=== PATIENT | female | born 1950 | race Caucasian/White ===

== ENCOUNTER 2017-01-01 18:19 | Inpatient (IN) | payer OTHER, MEDICAID, MEDICARE ==
[2017-01-01] MEDS ORDERED: Aspirin 81mg Chewable Tab PO STA (18:34)
[2017-01-01] MEDS ORDERED: NITROGLYCERIN OINT 2% 1 INCH PACKET TP STA (18:36)
--- NOTE | 2017-01-01 18:43 | ED Physician Chart ---
Chief Complaint/HPI - Patient Information Date Seen:: 01/01/17 Time Seen:: 18:00 Chief Complaint:: chest pain, SOB History of Present Illness:: Pt. has pacemaker and is S/P parmjit. She has had multiple episodes of chest pain and dyspnea. She c/o onset of dyspnea and chest pain sometime during the day today. Pt. has hx of "headache" associated with NTG. Allergies:: Allergies Allergy/AdvReac Type Severity Reaction Status Date / Time acetaminophen [From Vicodin] Allergy Verified 01/01/17 18:28 hydrocodone [From Vicodin] Allergy Verified 01/01/17 18:28 ibuprofen [From Motrin] Allergy Verified 01/01/17 18:28 nitroglycerin Allergy Verified 01/01/17 18:28 Vitals:: Vital Signs - 8 hr 01/01/17 18:30 Temp 97.7 F HR 60 RR 19 BP 137/88 O2 Sat % 95 Historian:: Patient Review of Systems - Review of Systems General/Constitutional: No fever Skin: No skin lesions Head: No headache ENT: No earache, No sore throat Neck: No neck pain, No swelling Cardio Vascular: Chest pain, No palpitations Pulmonary: SOB GI: No vomiting G/U: No dysuria Psychiatric: No prior psych history Past Medical History - Past Medical History Past Medical History: HTN, Dyslipidemia, Other (dysrrythmia, UTI's) Family History: Heart disease, Diabetes Melitus (sister had DM and unspecified CA) Social History: Non Smoker, No Alcohol Surgical History: Cholecystectomy, other (pacemaker) Psychiatricy History: None Medication Reviewed:: Ibuprofen, lisinopril, simvastatin, oxybutynin Physical Exam - Physical Examination General/Constitutional: Awake, Well-developed, well-nourished, Alert, No distress, GCS 15, Non-toxic appearing, Ambulatory Head: Atraumatic Eyes: Lids, conjuctiva normal, PERRL, EOMI Skin: Nl inspection ENMT: TM canals nl, Oropharynx nl Neck: Nontender, Full ROM w/o pain Respiratory: Nl effort/Exclusion, Clear to Auscultation Cardio Vascular: RRR, No murmur, gallop, rubs GI: No tenderness/rebounding/guarding : No CVA tenderness Extremities: No tenderness or effusion, normal strength in all extremities Neuro/Psych: Alert/oriented, Normal motor strength, Judgement/insight normal, No focal deficits Labs/Radiology/EKG Results - Lab Results Results: EKG: Atrial-paced rythm rate 75. CXR: No infiltrate. No free air or free fluid. Nl. heart size. CMP: gluc 124 CPK, trop wnl. CBC wnl PT 8.9 PTT 24.0 BNP 11.7 EKG: Atrial paced rythm 75. one PVC (vs. artifact). LVH. No acute ST change. ED Septic Shock - . Is Septic Shock (SBP<90, OR Lactate>4 mmol\\L) present?: No - <6hrs of presentation: Vital Signs: Vital Signs - 8 hr 01/01/17 18:30 Temp 97.7 F HR 60 RR 19 BP 137/88 O2 Sat % 95 Reassessment (Disposition) - Reassessment Reassessment Condition:: Improved - Patient Disposition Discharge/Transfer:: Acute Care w/in this hosp Accepting Physician:: Dr. Vance Time Called:: 1929 Time Responded:: 19:40 Discussion with Medical Provider:: Card. markers nl. Nitro topical and ASA given. Dr. Vance gave orders. Admitted to:: Telemetry Condition at Disposition:: Stable ED Discharge Plan - Patient Disposition Admit/Discharge/Transfer: Acute Care w/in this hosp Condition at Disposition: Guarded
[2017-01-01 18:45] LABS: % BASOPHILS 0.7 % (0.0-2.0); % EOSINOPHILS 3.5 % (0.0-5.0); % LYMPHOCYTES 34.2 % (20.0-50.0); % MONOCYTES 8.3 % (2.0-10.0); % NEUTROPHILS 53.3 % (40.0-80.0); HEMATOCRIT 41.7 % (35.0-45.0); HEMOGLOBIN 13.7 gm/dL (11.7-16.1); MEAN CORPUSCULAR HGB CONC 32.9 pg (28.0-36.0); MEAN PLATELET VOLUME 8.6 fl; NEUTROPHILE ABSOLUTE 3.4 Th/cmm (1.8-8.0); PLATELET COUNT 210 Th/cmm (150-400); RED BLOOD COUNT 4.74 Mil/cmm (3.80-5.20); WHITE BLOOD COUNT 6.2 Th/cmm (4.8-10.8)
[2017-01-01] MEDS ORDERED: Aspirin 81mg Chewable Tab ONE (18:56)
[2017-01-01] MEDS ORDERED: NITROGLYCERIN OINT 2% 1 INCH PACKET TP ONE (18:57)
[2017-01-01 19:01] LABS: INR 0.92 (0.5-1.4); PROTHROMBIN TIME (TEST) 9.6 SECONDS (9.5-11.5)
[2017-01-01 19:05] LABS: ALB/GLOB RATIO 1.8 (1.0-1.8); ANION GAP 9.4 (7.0-16.0); BILIRUBIN,TOTAL 0.5 mg/dL (0.3-1.0); BUN/CREATININE RATIO 16.7; CALCIUM SERUM 9.6 mg/dL (8.6-10.3); CARBON DIOXIDE 27.1 mEq/L (21.0-31.0); CREATININE - SERUM 1.2 mg/dL (0.6-1.2); POTASSIUM SERUM 3.5 mEq/L (3.5-5.1)
[2017-01-01 19:09] LABS: CREATINE KINASE MB 2.6 ng/mL (0.6-6.3)
[2017-01-01] MEDS ORDERED: Potassium Chloride 20 mEq ER Tab PO ONE (20:49)
[2017-01-01] MEDS: Pantoprazole 40 mg EC Tab PO SCH (22:00)
[2017-01-01 22:07] LABS: URINE COLOR YELLOW
[2017-01-01 22:08] LABS: URINE BACTERIA FEW /hpf (NONE SEEN); URINE BILIRUBIN NEGATIVE (NEGATIVE); URINE BLOOD NEGATIVE (NEGATIVE); URINE EPITHELIAL CELLS FEW /lpf (FEW); URINE GLUCOSE (UA) NEGATIVE (NEGATIVE); URINE KETONE NEGATIVE (NEGATIVE); URINE PROTEIN NEGATIVE (NEGATIVE); URINE RBC 0-1 /hpf (0-5); URINE UROBILINOGEN 0.2 E.U./dL (0.2 - 1.0)
[2017-01-02 03:53] VITALS: BP 144/88
[2017-01-02 05:35] LABS: HEMOGLOBIN 13.1 gm/dL (11.7-16.1)
[2017-01-02 05:48] LABS: MEAN CELL VOLUME 88.5 fl (81-100); MEAN CORPUSCULAR HEMOGLOBIN 29.7 pg (27.0-31.0); MEAN CORPUSCULAR HGB CONC 33.6 pg (28.0-36.0); MEAN PLATELET VOLUME 9.1 fl; PLATELET COUNT 194 Th/cmm (150-400); RED BLOOD COUNT 4.41 Mil/cmm (3.80-5.20); RED CELL DISTRIBUTION WIDTH 12.2 % (11.5-20.0); WHITE BLOOD COUNT 4.8 Th/cmm (4.8-10.8)
[2017-01-02 05:58] LABS: ALB/GLOB RATIO 1.7 (1.0-1.8); ALKALINE PHOSPHATASE 78 U/L (34-104); ANION GAP 7.6 (7.0-16.0); BILIRUBIN,TOTAL 0.4 mg/dL (0.3-1.0); BUN - UREA NITROGEN 16 mg/dL (7-25); CALCIUM SERUM 9.1 mg/dL (8.6-10.3); CARBON DIOXIDE 27.1 mEq/L (21.0-31.0); CHLORIDE 110 mEq/L (98-107); CHOLESTEROL 219 mg/dL (<200); GLUCOSE 101 mg/dL (70-105); POTASSIUM SERUM 3.7 mEq/L (3.5-5.1); SGOT 20 U/L (13-39); SGPT/ALT 20 U/L (7-52); SODIUM SERUM 141 mEq/L (136-145); TRIGLYCERIDES 337 mg/dL (<150)
[2017-01-02 07:31] LABS: BAND NEUTROPHILE 0 % (0-10); NEUTROPHILS 45 % (40-80); PLATELET ESTIMATE ADEQUATE (NORMAL); TOTAL CELLS COUNTED 100
[2017-01-02] MEDS: Pantoprazole 40 mg EC Tab PO SCH (08:21)
--- NOTE | 2017-01-02 08:37 | Diagnostic Imaging Report ---
CHEST X-RAY: AP view INDICATION: pain COMPARISON: None FINDINGS: Left chest wall pacemaker is seen with leads in the region of the right atrium and right ventricle. Suboptimal lung volumes are noted. There is no focal consolidation or pleural effusions The heart is normal in size. Degenerative changes of the spine are noted. IMPRESSION: Suboptimal lung volumes with no consolidation identified. Pacemaker noted.
[2017-01-02] MEDS ORDERED: Potassium Chloride 10 mEq ER Tab PO SCH (09:00)
[2017-01-02] MEDS ORDERED: Atorvastatin Calcium 10 MG TAB PO SCH (09:00)
[2017-01-03] MEDS ORDERED: Atorvastatin Calcium 10 MG TAB PO SCH (09:00)
== END 2017-01-02 18:50 | disposition home or self-care (01) | DRG 313 ==
LOC: ER 18:19 → TELE 19:40
PROVIDERS: ADMIT Family Medicine; ATTEND Family Medicine
DX: R07.9 Chest pain, unspecified (principal); I25.10 Atherosclerotic heart disease of native coronary artery without angina pectoris; I10 Essential (primary) hypertension; K21.9 Gastro-esophageal reflux disease without esophagitis; E78.5 Hyperlipidemia, unspecified; Z90.49 Acquired absence of other specified parts of digestive tract; Z95.0 Presence of cardiac pacemaker; Z88.5 Allergy status to narcotic agent; Z88.6 Allergy status to analgesic agent; Z88.8 Allergy status to other drugs, medicaments and biological substances; Z83.3 Family history of diabetes mellitus; Z80.9 Family history of malignant neoplasm, unspecified; Z82.49 Family history of ischemic heart disease and other diseases of the circulatory system
CPT/HCPCS: 36415-UA; 71010-TC; 80053-TC; 80061-TC; 81001-TC; 82550-TC; 82553; 83880-TC; 84443-TC; 84484-TC; 85007-TC; 85025-TC; 85027-TC; 85610-TC; 85730-TC; 93005; Z7610